=== PATIENT | female | born 1955 | race Caucasian/White ===

== ENCOUNTER 2022-06-13 13:06 | Emergency (ER) | payer BC, MEDICARE ==
[2022-06-13 14:45] LABS: HEMOGLOBIN 13.5 gm/dl (12.3-15.3); RED BLOOD COUNT 4.13 M/UL (4.00-5.10); WHITE BLOOD COUNT 6.1 K/UL (4.5-11.0)
[2022-06-13 15:07] LABS: BUN/CREATININE RATIO 25 (0-10)
[2022-06-13] MEDS ORDERED: DOXYCYCLINE HY100 MG PO (17:32)
[2022-06-13] MEDS ORDERED: PREDNISONE 20 M20 MG PO (17:32)
== END 2022-06-13 18:02 | disposition home or self-care (01) ==
LOC: ER1 13:06
PROVIDERS: Physician Assistant
DX: I95.9 Hypotension, unspecified (principal); J44.1 Chronic obstructive pulmonary disease with (acute) exacerbation; Z20.822 Contact with and (suspected) exposure to COVID-19; E78.5 Hyperlipidemia, unspecified; I10 Essential (primary) hypertension; F17.200 Nicotine dependence, unspecified, uncomplicated; Z88.1 Allergy status to other antibiotic agents
CPT/HCPCS: 36600; 71046; 80053; 81001; 82550; 82553; 82803; 83605; 84484; 85025; 87040; 93005; 99285; U0002

== ENCOUNTER 2022-06-23 15:39 | Emergency (ER) | payer BC ==
[~2022-06-23 15:39] MED LIST: DOXYCYCLINE HY100 MG PO; PREDNISONE 20 M20 MG PO
[2022-06-23 17:20] LABS: HEMOGLOBIN 14.4 gm/dl (12.3-15.3); RED BLOOD COUNT 4.52 M/UL (4.00-5.10); WHITE BLOOD COUNT 9.4 K/UL (4.5-11.0)
[2022-06-23 17:49] LABS: BUN/CREATININE RATIO 27 (0-10)
[2022-06-23] MEDS ORDERED: PREDNISONE 10 M10 MG PO (20:58)
[2022-06-25 13:10] LABS: LYME TOTAL ANTIBODY CIA Negative (Negative)
== END 2022-06-23 21:05 | disposition home or self-care (01) ==
LOC: ER1 15:39
PROVIDERS: Emergency Medicine; Physician Assistant
DX: J40 Bronchitis, not specified as acute or chronic (principal); Z20.822 Contact with and (suspected) exposure to COVID-19
CPT/HCPCS: 71045; 80053; 81001; 82550; 82553; 83605; 83880; 84484; 85025; 85379; 86618; 87086; 93005; 96374; 99285; J2930; Q9967; U0002